=== PATIENT | female | born 1955 | race Asian ===

== ENCOUNTER 2020-09-25 08:47 | Day surgery (SDC) | payer OTHER ==
[~2020-09-25] VITALS: Ht 165.1 cm; Wt 70.3 kg
[2020-09-25] MEDS ORDERED: GLYCOPYRROLATE 0.2 MG/ML VIAL ONE (09:45)
[2020-09-25] MEDS: MIDAZOLAM HCL 5 MG/5 ML VIAL ONE ×4 (09:49→10:00)
[2020-09-25] MEDS: MEPERIDINE 100 MG INJ. 100 MG/ML VIAL ONE ×3 (09:50→09:54)
[2020-09-25 11:50] VITALS: BP_SYST 147
== END 2020-09-25 11:45 | disposition home or self-care (01) ==
LOC: SDS 08:47 → SMU 08:48 → SDS 11:45
PROVIDERS: ATTEND Colon & Rectal Surgery
DX: K62.5 Hemorrhage of anus and rectum (principal); K63.5 Polyp of colon; I12.9 Hypertensive chronic kidney disease with stage 1 through stage 4 chronic kidney disease, or unspecified chronic kidney disease; E11.22 Type 2 diabetes mellitus with diabetic chronic kidney disease; N18.30 Chronic kidney disease, stage 3 unspecified; E78.2 Mixed hyperlipidemia; Z20.828 Contact with and (suspected) exposure to other viral communicable diseases; Z98.890 Other specified postprocedural states; Z79.899 Other long term (current) drug therapy
CPT/HCPCS: 45380; 82962; 88305; 99152; 99153; G0378; J2175; J2250; J7030; U0003; J3490

== ENCOUNTER 2023-03-02 06:10 | Emergency (ER) | payer OTHER ==
[~2023-03-02] VITALS: Ht 170.2 cm; Wt 67.1 kg
[2023-03-02 06:15] VITALS: BP_SYST 148; PULSE 60; RESP 19; TEMP 97.9; O2SAT 98
[2023-03-02 06:40] LABS: BASOPHILS # (AUTO) 0.1 K/uL (0.0-0.2); BASOPHILS % (AUTO) 0.8 % (0.0-2.0); EOSINOPHILS # (AUTO) 0.1 K/uL (0.0-0.4); EOSINOPHILS % (AUTO) 1.2 % (0.0-4.0); HEMATOCRIT 41.4 % (36-48); LYMPHOCYTES # (AUTO) 1.4 K/uL (1.0-5.5); LYMPHOCYTES % (AUTO) 14.2 % (20.5-51.5); MEAN CORPUSCULAR HEMOGLOBIN 31 pg (27-31); MEAN CORPUSCULAR HGB CONC 34 % (32-36); MEAN CORPUSCULAR VOLUME 92 fL (79.0-98.0); MONOCYTES # (AUTO) 0.7 K/uL (0.0-1.0); MONOCYTES % (AUTO) 6.4 % (1.7-9.3); NEUTROPHILS # (AUTO) 7.8 K/uL (1.8-7.7); NEUTROPHILS % (AUTO) 77.4 % (40.0-70.0); PLATELET COUNT (AUTO) 224 K/uL (130-430); RED BLOOD CELL COUNT(AUTO) 4.49 MIL/uL (4.2-6.2); WHITE BLOOD COUNT (AUTO) 10.1 K/uL (4.8-10.8)
[2023-03-02 06:59] LABS: ANION GAP 8 (5-15); CALCIUM 9.2 mg/dL (8.4-11.0); CARBON DIOXIDE 26 mmol/L (23-29); CHLORIDE 103 mmol/L (98-107); CREATININE 1.56 mg/dL (0.55-1.30); GFR AFRICAN AMERICAN 43 mL/min (>90); GLUCOSE 168 mg/dL (74-106); POTASSIUM 4.2 mmol/L (3.5-5.1); SODIUM SERUM 137 mmol/L (136-145); UREA NITROGEN, BLOOD 30 mg/dL (8-21)
[2023-03-02 07:14] LABS: ALANINE AMINOTRANSFERASE 80 U/L (12-78); ALBUMIN 3.7 g/dL (3.4-4.8); AMYLASE 87 U/L (0-100); ASPARTATE AMINOTRANSFERASE 160 U/L (10-37); LIPASE 321 U/L (73-393); TOTAL BILIRUBIN 1.5 mg/dL (0.0-1.0); TOTAL PROTEIN, SERUM 7.7 g/dL (6.4-8.3)
[2023-03-02 07:19] LABS: GFR NON AFRICAN-AMERICAN 35 mL/min (>90)
[2023-03-02 07:50] LABS: INR 0.9 (0.8-1.2); PROTHROMBIN TIME 9.6 SECS (9.5-12.5)
[2023-03-02 08:20] LABS: BILIRUBIN,URINE NEGATIVE (NEGATIVE); BLOOD, URINE NEGATIVE (NEGATIVE); CLARITY/URINE CLEAR (CLEAR); COLOR,URINE YELLOW (YELLOW); GLUCOSE,URINE 2+ (NEGATIVE); KETONES,URINE 1+ (NEGATIVE); LEUKOCYTE ESTERASE ,URINE NEGATIVE (NEGATIVE); NITRITE, URINE NEGATIVE (NEGATIVE); PROTEIN URINE 2+ (NEGATIVE); UROBILINOGEN,URINE 0.2 (0.2-1.0)
[2023-03-02 08:23] LABS: BACTERIA,URINE None Seen /HPF (None Seen); CALCIUM OXALATE CRYSTALS,UR None Seen /HPF (None Seen); CALCIUM PHOSPHATE CRYSTALS,UR None Seen /HPF (None Seen); COARSE GRANULAR CASTS,URINE None Seen /LPF (None Seen); FINE GRANULAR CASTS,URINE None Seen /LPF (None Seen); HYALINE CASTS, URINE None Seen /LPF (None Seen); MUCUS,URINE None Seen /LPF (None Seen); OTHER CASTS, URINE None Seen /LPF (None Seen); OTHER CRYSTALS,URINE None Seen /HPF (None Seen); RBC,URINE NONE SEEN /HPF (0-3); TRICHOMONAS,URINE None Seen /HPF (None Seen); TRIPLE PHOSPHATE CRYSTAL,UR None Seen /HPF (None Seen); URIC ACID CRYSTALS,URINE None Seen /HPF (None Seen); URINE AMORPHOUS PHOSPHATES None Seen /HPF (None Seen); URINE AMORPHOUS URATE None Seen /HPF (None Seen); WAXY CASTS,URINE None Seen /LPF (None Seen); WBC,URINE NONE SEEN /HPF (0-3); YEAST,URINE None Seen /HPF (None Seen)
[2023-03-02] MEDS ORDERED: IBUP-1969 PO (10:19)
[2023-03-02] MEDS ORDERED: HYDR-3927 PO (10:19)
[2023-03-02 11:29] VITALS: BP_SYST 132; PULSE 59; RESP 16; TEMP 98.3; O2SAT 97
== END 2023-03-02 10:41 | disposition home or self-care (01) ==
LOC: SED 06:10
DX: K80.50 Calculus of bile duct without cholangitis or cholecystitis without obstruction (principal); R10.11 Right upper quadrant pain; I12.9 Hypertensive chronic kidney disease with stage 1 through stage 4 chronic kidney disease, or unspecified chronic kidney disease; E11.22 Type 2 diabetes mellitus with diabetic chronic kidney disease; N18.9 Chronic kidney disease, unspecified; Z88.5 Allergy status to narcotic agent; Z91.040 Latex allergy status; Z85.3 Personal history of malignant neoplasm of breast; Z79.899 Other long term (current) drug therapy
CPT/HCPCS: 36415; 71045; 76376; 80053; 81000; 82150; 83605; 83690; 84484; 85025; 85610-TC; 85730-TC; 93005; 99284